=== PATIENT | male | born 1970 | race Two or more races ===

== ENCOUNTER 2024-01-21 09:24 | Outpatient (AMB) | payer MEDICAID, SELFPAY ==
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
[2024-01-21 09:42] VITALS: BP 115/79; PULSE 81; RESP 18; TEMP 35.6; O2SAT 95; BMI 30.2
== END 2024-01-21 10:00 | disposition home or self-care (01) ==
LOC: HODSRG 09:24
PROVIDERS: PCP Family Medicine; Referring Provider Family Medicine; Supervising Provider Surgery; Visit Provider Surgery
DX: Z48.815 Encounter for surgical aftercare following surgery on the digestive system (principal)
CPT/HCPCS: 99213; G0463